=== PATIENT | female | born 1995 | race Caucasian/White ===

== ENCOUNTER 2019-05-13 04:31 | Inpatient (IN) | payer MEDICAID ==
[~2019-05-13] VITALS: Ht 165.1 cm; Wt 113.4 kg
[2019-05-13 06:14] LABS: BASOPHILS % 0.5 % (0.0-2.0); EOSINOPHILS % 0.6 % (0.0-5.0); HEMATOCRIT. 38.5 % (36.0-48.0); HEMOGLOBIN. 13.2 g/dL (12.0-16.0); MEAN CORPUSCULAR HEMOGLOBIN 31.2 pg (28.0-32.0); MEAN CORPUSCULAR VOLUME 91.2 fL (81.0-99.0); MEAN PLATELET VOLUME 8.9 fl (7.4-10.4); MONOCYTES % 5.7 % (2.0-8.0); NEUTROPHILS % 73.2 % (40.0-76.0); PLATELET 334 x1000/uL (130-400); RED BLOOD CELL COUNT 4.22 mill/uL (4.2-5.4); RED CELL DISTRIBUTION WIDTH 13.1 % (11.6-14.6)
[2019-05-13] MEDS ORDERED: KETOROLAC 30MG/ML VIAL IV STA (06:14)
[2019-05-13] MEDS ORDERED: SODIUM CHLORIDE 0.9% 1,000 ML IV ONE (06:14)
[2019-05-13] MEDS ORDERED: ONDANSETRON HCL 4MG/2ML INJ IV STA (06:14)
[2019-05-13 07:10] LABS: CLARITY URINE CLEAR (CLEAR); COLOR URINE YELLOW (YELLOW); KETONES URINE NEGATIVE (NEGATIVE); LEUKOCYTE ESTERASE URINE TRACE (NEGATIVE); NITRITE URINE NEGATIVE (NEGATIVE); OCCULT BLOOD URINE TRACE (NEGATIVE); PH URINE 8.5 (4.5-8.0); PROTEIN URINE NEGATIVE (NEGATIVE); SPECIFIC GRAVITY URINE 1.021 (1.005-1.030)
[2019-05-13 07:23] LABS: CHLORIDE 107 mEq/L (98-107)
[2019-05-13 12:55] VITALS: BP 114/70
[2019-05-13 13:28] LABS: HEPATITIS B SURFACE ANTIGEN NEGATIVE
[2019-05-13 14:00] LABS: HEPATITIS A AB IGM NEGATIVE (NEGATIVE)
[2019-05-13 16:00] VITALS: BP 99/62
[2019-05-13] MEDS ORDERED: PIPERACILLIN/TAZOBACTAM 3.375GM/50ML PREMIX IV SCH (16:00)
[2019-05-13] MEDS: DEXT 5%/0.45% NACL KCL 20MEQ/L 1,000 ML IV SCH (18:19)
[2019-05-13] MEDS: PIPERACILLIN/TAZOBACTAM 3.375 G in DEXT 5% WATER 100 ML IV SCH (18:20)
[2019-05-13 20:00] VITALS: BP 100/58
[2019-05-13] MEDS: FAMOTIDINE 20MG/2ML VIAL IV SCH (20:37)
[2019-05-13] MEDS: ENOXAPARIN 30MG/0.3ML SYR SUBCUT SCH (20:41)
[2019-05-13] MEDS: ONDANSETRON HCL 4MG/2ML INJ IV PRN (20:44)
[2019-05-13] MEDS: MORPHINE SULFATE 2 MG/ML CPJ (NOT FOR IM USE) IV PRN (21:31)
[2019-05-14] VITALS: BP 102/56
[2019-05-14] MEDS: PIPERACILLIN/TAZOBACTAM 3.375 G in DEXT 5% WATER 100 ML IV SCH ×5 (00:18→23:14)
[2019-05-14] MEDS: DEXT 5%/0.45% NACL KCL 20MEQ/L 1,000 ML IV SCH ×4 (00:23→23:14)
[2019-05-14 04:00] VITALS: BP 105/57
[2019-05-14] MEDS: MORPHINE SULFATE 2 MG/ML CPJ (NOT FOR IM USE) IV PRN ×4 (05:24→23:33)
[2019-05-14 07:03] LABS: BASOPHILS % 0.9 % (0.0-2.0); EOSINOPHILS % 1.7 % (0.0-5.0); HEMATOCRIT. 38.8 % (36.0-48.0); LYMPHOCYTES % 37.9 % (20.0-50.0); MEAN CORPUSCULAR HEMOGLOBIN 30.9 pg (28.0-32.0); MEAN CORPUSCULAR VOLUME 92.3 fL (81.0-99.0); MEAN PLATELET VOLUME 8.9 fl (7.4-10.4); MONOCYTES % 5.3 % (2.0-8.0); NEUTROPHILS % 54.2 % (40.0-76.0); PLATELET 287 x1000/uL (130-400)
[2019-05-14 07:10] LABS: CHLORIDE 110 mEq/L (98-107)
[2019-05-14 08:00] VITALS: BP 103/61
[2019-05-14] MEDS: FAMOTIDINE 20MG/2ML VIAL IV SCH ×2 (08:31→20:33)
[2019-05-14] MEDS: ONDANSETRON HCL 4MG/2ML INJ IV PRN ×2 (08:31→19:01)
[2019-05-14] MEDS: ENOXAPARIN 30MG/0.3ML SYR SUBCUT SCH (08:31)
[2019-05-14 12:00] VITALS: BP 117/80
[2019-05-14] MEDS ORDERED: IOHEXOL-300 100 ML BOTTLE ONE (14:16)
[2019-05-14] MEDS ORDERED: NEOSTIGMINE METHYLSULFATE 1MG/ML 10 ML VIAL ONE (15:34)
[2019-05-14] MEDS ORDERED: FENTANYL CITRATE/PF 50MCG/ML 2ML VIAL ONE (15:34)
[2019-05-14] MEDS ORDERED: ROCURONIUM BROMIDE 10MG/ML VIAL 5ML IV ONE (15:34)
[2019-05-14] MEDS ORDERED: MIDAZOLAM HCL 2 MG/2 ML VIAL ONE (15:34)
[2019-05-14] MEDS ORDERED: PROPOFOL 200MG/20ML VIAL IV ONE (15:34)
[2019-05-14] MEDS ORDERED: GLYCOPYRROLATE 0.2 MG/ML 2ML VIAL ONE ×2 (15:35→16:25)
[2019-05-14] MEDS ORDERED: DEXAMETHASONE 4MG/ML 1ML VIAL ONE (15:40)
[2019-05-14] MEDS ORDERED: ONDANSETRON HCL 4MG/2ML INJ ONE (15:40)
[2019-05-14] MEDS ORDERED: ACETAMINOPHEN 650MG SUPP PR PRN (15:45)
[2019-05-14 16:00] VITALS: BP 124/77
[2019-05-14] MEDS ORDERED: LABETALOL 5MG/ML SYR 20 MG/4 ML SYRINGE IV PRN (16:45)
[2019-05-14] MEDS ORDERED: MEPERIDINE HCL/PF 25MG/ML CPJ IV PRN (16:45)
[2019-05-14] MEDS ORDERED: ONDANSETRON HCL 4MG/2ML INJ IV PRN (16:45)
[2019-05-14] MEDS ORDERED: HYDROMORPHONE HCL/PF 2MG/ML CPJ IV PRN (16:45)
[2019-05-14 19:38] LABS: HEMATOCRIT 40.9 % (36.0-48.0); HEMOGLOBIN 13.5 g/dL (12.0-16.0); MEAN CORPUSCULAR VOLUME 93.7 fL (81.0-99.0); PLATELET 287 x1000/uL (130-400); RED BLOOD CELL COUNT 4.36 mill/uL (4.2-5.4); RED CELL DISTRIBUTION WIDTH 12.9 % (11.6-14.6)
[2019-05-14 19:42] LABS: CHLORIDE 111 mEq/L (98-107)
[2019-05-14 19:48] LABS: HCG SCREEN NEGATIVE
[2019-05-14 20:00] VITALS: BP 100/60
[2019-05-15] VITALS: BP 109/69
[2019-05-15 04:00] VITALS: BP 105/61
[2019-05-15] MEDS: PIPERACILLIN/TAZOBACTAM 3.375 G in DEXT 5% WATER 100 ML IV SCH ×2 (06:21→12:08)
[2019-05-15 06:46] LABS: HEMATOCRIT 37.6 % (36.0-48.0); HEMOGLOBIN 12.5 g/dL (12.0-16.0); MEAN CORPUSCULAR HEMOGLOBIN 30.8 pg (28.0-32.0); MEAN CORPUSCULAR VOLUME 92.3 fL (81.0-99.0); PLATELET 295 x1000/uL (130-400); RED BLOOD CELL COUNT 4.07 mill/uL (4.2-5.4); RED CELL DISTRIBUTION WIDTH 12.7 % (11.6-14.6)
[2019-05-15 06:56] LABS: PROTHROMBIN TIME 10.7 sec (9.6-11.0)
[2019-05-15 07:09] LABS: CHLORIDE 110 mEq/L (98-107)
[2019-05-15 08:00] VITALS: BP 111/52
[2019-05-15] MEDS ORDERED: INDOCYANINE GREEN 25 MG VIAL IV ONE ×2 (08:30→17:07)
[2019-05-15] MEDS: FAMOTIDINE 20MG/2ML VIAL IV SCH (08:35)
[2019-05-15] MEDS: DEXT 5%/0.45% NACL KCL 20MEQ/L 1,000 ML IV SCH (09:00)
[2019-05-15] MEDS ORDERED: URO10 PO (11:08)
[2019-05-15] MEDS ORDERED: TADA5TAB MT (11:08)
[2019-05-15 12:00] VITALS: BP 109/67
[2019-05-15 16:00] VITALS: BP 109/69
[2019-05-15] MEDS ORDERED: LIDOCAINE HCL 1% 20ML VIAL (Pyxis) INJ ONE (17:06)
[2019-05-15] MEDS ORDERED: BACITRACIN 50,000 UNITS/VIAL ONE (17:06)
[2019-05-15] MEDS ORDERED: BUPIVACAINE HCL/PF 0.5% (5MG/ML) 10ML ONE (17:06)
[2019-05-15] MEDS ORDERED: SKIN ADHESIVE 0.7 GM EA TOP ONE (17:06)
[2019-05-15] MEDS ORDERED: MIDAZOLAM HCL 2 MG/2 ML VIAL ONE (17:44)
[2019-05-15] MEDS ORDERED: FENTANYL CITRATE/PF 50MCG/ML 2ML VIAL ONE ×2 (17:44→18:50)
[2019-05-15] MEDS ORDERED: ROCURONIUM BROMIDE 10MG/ML VIAL 5ML IV ONE (17:45)
[2019-05-15] MEDS ORDERED: PROPOFOL 200MG/20ML VIAL IV ONE (17:45)
[2019-05-15] MEDS ORDERED: LIDOCAINE HCL/PF 1% 10 MG/ML 5ML VIAL ONE (17:45)
[2019-05-15] MEDS ORDERED: GLYCOPYRROLATE 0.2 MG/ML 2ML VIAL ONE ×2 (17:55→20:17)
[2019-05-15] MEDS ORDERED: SUCCINYLCHOLINE CHLORIDE 200MG/10ML IV ONE (17:58)
[2019-05-15] MEDS ORDERED: SODIUM CHLORIDE 0.9% 10ML VIAL ONE (18:11)
[2019-05-15] MEDS ORDERED: CEFAZOLIN SODIUM 1000MG/VIAL ONE (18:11)
[2019-05-15] MEDS ORDERED: LABETALOL HCL 5MG/ML VIAL 20ML IV ONE (18:49)
[2019-05-15] MEDS ORDERED: ONDANSETRON HCL 4MG/2ML INJ ONE (18:57)
[2019-05-15] MEDS ORDERED: DEXAMETHASONE 4MG/ML 1ML VIAL ONE (18:57)
[2019-05-15] MEDS ORDERED: NEOSTIGMINE METHYLSULFATE 1MG/ML 10 ML VIAL ONE (20:17)
[2019-05-15] MEDS ORDERED: HYDROMORPHONE HCL/PF 2MG/ML (OR) ONE (20:51)
[2019-05-15] MEDS: HYDROMORPHONE HCL/PF 2MG/ML CPJ IV PRN ×2 (21:20→21:40)
[2019-05-16] VITALS: BP 98/69
[2019-05-16] MEDS: DEXT 5%/0.45% NACL KCL 20MEQ/L 1,000 ML IV SCH ×3 (02:00→09:27)
[2019-05-16] MEDS: PIPERACILLIN/TAZOBACTAM 3.375 G in DEXT 5% WATER 100 ML IV SCH ×4 (02:00→12:20)
[2019-05-16] MEDS: HYDROMORPHONE HCL/PF 2MG/ML CPJ IM PRN ×2 (02:01→08:29)
[2019-05-16 04:00] VITALS: BP 123/68
[2019-05-16] MEDS: FAMOTIDINE 20MG/2ML VIAL IV SCH ×2 (04:56→08:29)
[2019-05-16] MEDS: ONDANSETRON HCL 4MG/2ML INJ IV PRN (04:57)
[2019-05-16 07:27] LABS: HEMATOCRIT. 38.3 % (36.0-48.0); HEMOGLOBIN. 12.9 g/dL (12.0-16.0); MEAN CORPUSCULAR VOLUME 92.1 fL (81.0-99.0); MEAN PLATELET VOLUME 9.1 fl (7.4-10.4); PLATELET 321 x1000/uL (130-400); RED BLOOD CELL COUNT 4.16 mill/uL (4.2-5.4); RED CELL DISTRIBUTION WIDTH 12.7 % (11.6-14.6)
[2019-05-16 07:30] LABS: CHLORIDE 108 mEq/L (98-107)
[2019-05-16 08:00] VITALS: BP 106/65
[2019-05-16] MEDS ORDERED: HYDROCODONE/ACETAMINOPHEN 5/325MG TABLET PO PRN (12:45)
[2019-05-16] MEDS ORDERED: HYDROMORPHONE HCL/PF 2MG/ML CPJ IV PRN (13:00)
[2019-05-16 14:51] VITALS: BP 136/65
[2019-05-16 17:05] LABS: PLATELET ESTIMATE NORMAL
== END 2019-05-16 15:09 | disposition home or self-care (01) ==
LOC: ER 04:31 → EDBEDREQTM 10:01 → ENRESERV 11:36 → 6EST 12:26
PROVIDERS: ADMIT Internal Medicine; ATTEND Internal Medicine
PROC: 0FC98ZZ Extirpation of Matter from Common Bile Duct, Via Natural or Artificial Opening Endoscopic (ICD-10-PCS; principal; 2019-05-14)
PROC: 0F798ZZ Dilation of Common Bile Duct, Via Natural or Artificial Opening Endoscopic (ICD-10-PCS; 2019-05-14)
DX: K80.62 Calculus of gallbladder and bile duct with acute cholecystitis without obstruction (principal); I95.89 Other hypotension; E66.01 Morbid (severe) obesity due to excess calories; K76.0 Fatty (change of) liver, not elsewhere classified; Z68.43 Body mass index [BMI] 50.0-59.9, adult; K82.8 Other specified diseases of gallbladder; Z88.9 Allergy status to unspecified drugs, medicaments and biological substances; Z98.891 History of uterine scar from previous surgery; Z53.9 Procedure and treatment not carried out, unspecified reason; R00.0 Tachycardia, unspecified; R09.02 Hypoxemia
CPT/HCPCS: 36415; 74181; 74328; 76705; 80076; 81003; 82248; 84703; 85027; 86705; 86709; 86803; 87340; 93005; 99285; C1726; C1769; J0330; J0690; J1100; J1170; J1650; J1885; J2250; J2270; J2405; J2543; J2704; J2710; J3010; J3490; J7030; J7060; Q9957; Q9967